=== PATIENT | female | born 1980 | race American Indian/Alaskan Native ===

== ENCOUNTER 2020-10-26 15:26 | Emergency (ER) | payer MEDICAID ==
--- NOTE | 2020-10-26 16:33 | Emergency Department Report ---
Blank Doc - Documentation Documentation: 40-year-old female that presents with chest pain, shortness of breath with rad iation to left arm. History of several MIs. 1- This initial assessment/diagnostic orders/clinical plan/ treatment(s) is/are subject to change based on pt's health status, clinical progression and re- assessment by fellow clinical providers in the ED. Further treatment and workup at subsequent clinical provers discretion. Patient/guardians urged not to elope from ED as their condition may be serious if not clinically assessed and managed. 2-cardiac work-up
[2020-10-26 16:48] LABS: Basophils # (Auto) 0.1 K/mm3 (0.0-0.1); Basophils % (Auto) 1.1 % (0.0-1.8); Eosinophils # (Auto) 0.3 K/mm3 (0.0-0.4); Eosinophils % (Auto) 5.2 % (0.0-4.3); Hematocrit 40.4 % (30.3-42.9); Hemoglobin 13.1 gm/dl (10.1-14.3); Lymphocytes # (Auto) 2.2 K/mm3 (1.2-5.4); Lymphocytes % (Auto) 39.4 % (13.4-35.0); Mean Corpuscular HGB Conc 32 % (30-34); Mean Corpuscular Volume 83 fl (79-97); Monocytes # (Auto) 0.5 K/mm3 (0.0-0.8); Monocytes % (Auto) 8.6 % (0.0-7.3); Platelet Count 199 K/mm3 (140-440); Red Blood Count 4.88 M/mm3 (3.65-5.03); Red Cell Distribution Width 15.8 % (13.2-15.2)
[2020-10-26 17:02] LABS: Partial Thromboplastin Time 29.4 Sec. (24.2-36.6)
[2020-10-26 17:11] LABS: Alanine Aminotransferase 21 units/L (7-56); BUN/Creatinine Ratio 8; Blood Urea Nitrogen 6 mg/dL (7-17); Calcium 9.4 mg/dL (8.4-10.2); Hemolysis Index 4
--- NOTE | 2020-10-26 17:59 | XRay Report ---
CHEST 2 VIEWS INDICATION / CLINICAL INFORMATION: Chest Pain. COMPARISON: None available. FINDINGS: SUPPORT DEVICES: Right Port-A-Cath tip overlies SVC. HEART / MEDIASTINUM: No significant abnormality. LUNGS / PLEURA: No significant pulmonary or pleural abnormality. No pneumothorax. ADDITIONAL FINDINGS: No significant additional findings. IMPRESSION: 1. No acute findings. Signer Name: Rigo Alegria MD Signed: 10/26/2020 5:55 PM Workstation Name: [id number] [id number]
--- NOTE | 2020-10-26 23:59 | Emergency Department Report ---
<OLEKSANDR ANTHONY - Last Filed: 10/27/20 02:26> ED Chest Pain HPI - General Chief Complaint: Chest Pain Stated Complaint: CHEST PAINS Time Seen by Provider: 10/26/20 16:02 - Related Data Allergies Allergy/AdvReac Type Severity Reaction Status Date / Time No Known Allergies Allergy Unverified 10/26/20 15:30 ED Medical Decision Making - Lab Data Result diagrams: 10/26/20 16:15 10/26/20 16:15 - Medical Decision Making CTA chest is negative for pulmonary embolism. Patient denied any chest pain at this moment. Vital signs stable. Patient advised to follow-up with the plan that has been discussed by Dr. Harvey. Patient advised to return to the ER if she develop any new symptoms. ED Disposition Clinical Impression: Chest pain, Elevated serum hCG Disposition: TO HOME OR SELFCARE Condition: Stable Instructions: Nonspecific Chest Pain, Adult Additional Instructions: Continue current medication as prescribed. Follow-up with your doctor or d octor/clinic provided. Return if symptoms worsen as indicated by your discharge instructions. Please note that your beta hCG level today is 4.44. A negative test is considered less than 4 and a positive test is considered greater than 5. It is likely that this represents a false positive test. In order to confirm your test she will need to have these numbers repeated to determine if they are increasing, decreasing, or staying the same Referrals: JACKIE WHEELER MD [Staff Physician] - 3-5 Days (AGENCY MANAGER doctor) PRIMARY MD VAN [Primary Care Provider] - 3-5 Days ANTHONY WHITE MD [Staff Physician] - 2-3 Days (Chief Medical Director) <ISAÍAS HARVEY - Last Filed: 10/29/20 12:15> ED Chest Pain HPI - General Source: patient, EMS, old records reviewed (None available) Mode of arrival: Wheelchair Limitations: No Limitations - History of Present Illness Initial Comments: 40-year-old female the past medical history of morbid obesity, CAD with stent x1 in 2012, continued smoking/tobacco use, family history of CAD, hypertension, pulmonary embolus in 2016, DVT, and bipolar disorder presents to the hospital from [place] complaining of chest pain episode. Episode happened prior to arrival just before noon. Patient was sitting at a table when she experienced sudden onset of tightness across her chest lasting for several seconds and associated with shortness of breath and feeling hot. She denies nausea, vomiting, or diaphoresis. She states that her blood pressure increased and her pulse ox dropped however, this was not confirmed by review was paperwork or sitter at the bedside. Patient has not experienced any additional chest pain episodes today. Patient states she is supposed to be on Coumadin 6 mg Sunday, Sunday, Sunday, and 3 mg Sunday, , and Sunday. She has been noncompliant with her Coumadin x1 month. Patient has multiple medical reconciliation list on her chart provided from [facility] and is also noted that she has been placed on aspirin and pasugrel as well. Patient claims to be on all 3 of these antiplatelet/anticoagulant medication at the same time but they are not all listed on same MAR. She has not been cathed since 2012 but reports a stress test in May 2020 with unknown results. Her tow driver is Dr. White associated with [facility]. Patient states she does not silverman ve a green filter. She does have a chest wall PowerPort. To her knowledge patient denies however, she has a positive test here. Patient appears to have been initially medically cleared at [facility] on October 24 Heart Score - HEART Score History: Moderately suspicious EKG: Normal Age: < 45 Risk factors: > 3 risk factors or hx of atherosclerotic disease Troponin: < normal limit HEART Score: 3 ED Review of Systems ROS: Stated complaint: CHEST PAINS Other details as noted in HPI Comment: All other systems reviewed and negative ED Past Medical Hx - Past Medical History Previous Medical History?: Yes Hx Hypertension: Yes Hx Heart Attack/AMI: Yes (x 2) Hx Deep Vein Thrombosis: Yes Hx Pulmonary Embolism: Yes Hx Psychiatric Treatment: Yes (bipolar) - Surgical History Past Surgical History?: Yes Hx Coronary Stent: Yes Additional Surgical History: hysterectomy - Social History Smoking Status: Current Every Day Smoker Substance Use Type: None ED Physical Exam - General Limitations: No Limitations - Other Other exam information: General: No acute distress Head: Atraumatic Eyes: normal appearance ENT: Moist mucous membranes Neck: Normal appearance, no midline tenderness Chest: Clear to auscultation bilaterally, chest wall nontender CV: Regular rate and rhythm Abdomen: Soft, normal bowel sounds, nontender, nondistended, no rebound or guarding Back: Normal inspection Extremity: Normal inspection, full range of motion, no calf tenderness or leg edema Neuro: Alert O x 3, no facial asymmetry, speech clear, no gross motor sensory deficit Psych: Appropriate behavior Skin: No rash ED Course Vital Signs 10/26/20 10/27/20 10/27/20 15:30 00:00 01:00 Temperature 98.6 F Pulse Rate 85 71 65 Respiratory 18 15 18 Rate Blood Pressure 124/79 130/88 130/88 O2 Sat by Pulse 100 100 98 Oximetry 10/27/20 02:00 Temperature Pulse Rate 63 Respiratory 16 Rate Blood Pressure 130/88 O2 Sat by Pulse 100 Oximetry - Consultations Consultation #1: 10/27/20 01:51 Case discussed with on-call tow driver Dr. Byrd who agrees that patient may l ikely follow-up as outpatient. She has been pain-free since ED arrival for 2- 1/2 hours, has EKG without signs of ischemia x2, troponin negative x2, and has a heart score of 3. DARIO score - Dario Score Age > 65: (0) No Aspirin use within the Past 7 Days: (1) Yes 3 or more CAD Risk Factors: (1) Yes 2 or more Angina events in past 24 hrs: (0) No Known CAD with more than 50% Stenosis: (1) Yes Elevated Cardiac Markers: (0) No ST Deviation Greater than 0.5mm: (0) No DARIO Score: 3 ED Medical Decision Making - Lab Data Result diagrams: 10/26/20 16:15 10/26/20 16:15 Lab Results 10/26/20 10/26/20 10/26/20 Range/Units 16:15 16:15 16:15 WBC 5.7 (4.5-11.0) K/mm3 RBC 4.88 (3.65-5.03) M/mm3 Hgb 13.1 (10.1-14.3) gm/dl Hct 40.4 (30.3-42.9) % MCV 83 (79-97) fl MCH 27 L (28-32) pg MCHC 32 (30-34) % RDW 15.8 H (13.2-15.2) % Plt Count 199 (140-440) K/mm3 Lymph % (Auto) 39.4 H (13.4-35.0) % Creek % (Auto) 8.6 H (0.0-7.3) % Eos % (Auto) 5.2 H (0.0-4.3) % Baso % (Auto) 1.1 (0.0-1.8) % Lymph # (Auto) 2.2 (1.2-5.4) K/mm3 Creek # (Auto) 0.5 (0.0-0.8) K/mm3 Eos # (Auto) 0.3 (0.0-0.4) K/mm3 Baso # (Auto) 0.1 (0.0-0.1) K/mm3 Seg Neutrophils % 45.7 (40.0-70.0) % Seg Neutrophils # 2.6 (1.8-7.7) K/mm3 PT (12.2-14.9) Sec. INR (0.87-1.13) APTT (24.2-36.6) Sec. Sodium 144 (137-145) mmol/L Potassium 3.8 (3.6-5.0) mmol/L Chloride 106.5 (98-107) mmol/L Carbon Dioxide 29 (22-30) mmol/L Anion Gap 12 mmol/L BUN 6 L (7-17) mg/dL Creatinine 0.8 (0.6-1.2) mg/dL Estimated GFR > 60 ml/min BUN/Creatinine Ratio 8 % Glucose 96 (65-100) mg/dL Calcium 9.4 (8.4-10.2) mg/dL Magnesium (1.7-2.3) mg/dL Total Bilirubin 0.40 (0.1-1.2) mg/dL AST 24 (5-40) units/L ALT 21 (7-56) units/L Alkaline Phosphatase 77 (35-129) units/L Troponin T < 0.010 (0.00-0.029) ng/mL NT-Pro-B Natriuret Pep (0-450) pg/mL Total Protein 6.9 (6.3-8.2) g/dL Albumin 4.0 (3.9-5) g/dL Albumin/Globulin Ratio 1.4 % HCG, Qual Positive (Negative) HCG, Quant (0-4) mIU/mL 03/09/21 03/09/21 03/09/21 Range/Units 16:15 16:15 19:04 WBC (4.5-11.0) K/mm3 RBC (3.65-5.03) M/mm3 Hgb (10.1-14.3) gm/dl Hct (30.3-42.9) % MCV (79-97) fl MCH (28-32) pg MCHC (30-34) % RDW (13.2-15.2) % Plt Count (140-440) K/mm3 Lymph % (Auto) (13.4-35.0) % Creek % (Auto) (0.0-7.3) % Eos % (Auto) (0.0-4.3) % Baso % (Auto) (0.0-1.8) % Lymph # (Auto) (1.2-5.4) K/mm3 Creek # (Auto) (0.0-0.8) K/mm3 Eos # (Auto) (0.0-0.4) K/mm3 Baso # (Auto) (0.0-0.1) K/mm3 Seg Neutrophils % (40.0-70.0) % Seg Neutrophils # (1.8-7.7) K/mm3 PT 13.0 (12.2-14.9) Sec. INR 1.00 (0.87-1.13) APTT 29.4 (24.2-36.6) Sec. Sodium (137-145) mmol/L Potassium (3.6-5.0) mmol/L Chloride (98-107) mmol/L Carbon Dioxide (22-30) mmol/L Anion Gap mmol/L BUN (7-17) mg/dL Creatinine (0.6-1.2) mg/dL Estimated GFR ml/min BUN/Creatinine Ratio % Glucose (65-100) mg/dL Calcium (8.4-10.2) mg/dL Magnesium 1.80 (1.7-2.3) mg/dL Total Bilirubin (0.1-1.2) mg/dL AST (5-40) units/L ALT (7-56) units/L Alkaline Phosphatase (35-129) units/L Troponin T < 0.010 (0.00-0.029) ng/mL NT-Pro-B Natriuret Pep 62.95 (0-450) pg/mL Total Protein (6.3-8.2) g/dL Albumin (3.9-5) g/dL Albumin/Globulin Ratio % HCG, Qual (Negative) HCG, Quant (0-4) mIU/mL 10/26/20 10/27/20 Range/Units 23:48 Unknown WBC (4.5-11.0) K/mm3 RBC (3.65-5.03) M/mm3 Hgb (10.1-14.3) gm/dl Hct (30.3-42.9) % MCV (79-97) fl MCH (28-32) pg MCHC (30-34) % RDW (13.2-15.2) % Plt Count (140-440) K/mm3 Lymph % (Auto) (13.4-35.0) % Creek % (Auto) (0.0-7.3) % Eos % (Auto) (0.0-4.3) % Baso % (Auto) (0.0-1.8) % Lymph # (Auto) (1.2-5.4) K/mm3 Creek # (Auto) (0.0-0.8) K/mm3 Eos # (Auto) (0.0-0.4) K/mm3 Baso # (Auto) (0.0-0.1) K/mm3 Seg Neutrophils % (40.0-70.0) % Seg Neutrophils # (1.8-7.7) K/mm3 PT (12.2-14.9) Sec. INR (0.87-1.13) APTT (24.2-36.6) Sec. Sodium (137-145) mmol/L Potassium (3.6-5.0) mmol/L Chloride (98-107) mmol/L Carbon Dioxide (22-30) mmol/L Anion Gap mmol/L BUN (7-17) mg/dL Creatinine (0.6-1.2) mg/dL Estimated GFR ml/min BUN/Creatinine Ratio % Glucose (65-100) mg/dL Calcium (8.4-10.2) mg/dL Magnesium (1.7-2.3) mg/dL Total Bilirubin (0.1-1.2) mg/dL AST (5-40) units/L ALT (7-56) units/L Alkaline Phosphatase (35-129) units/L Troponin T < 0.010 (0.00-0.029) ng/mL NT-Pro-B Natriuret Pep (0-450) pg/mL Total Protein (6.3-8.2) g/dL Albumin (3.9-5) g/dL Albumin/Globulin Ratio % HCG, Qual (Negative) HCG, Quant 4.44 H (0-4) mIU/mL - EKG Data -: EKG Interpreted by Me EKG shows normal: sinus rhythm, ST-T waves (no stemi) Rate: normal - EKG Data When compared to previous EKG there are: previous EKG unavailable 10/27/20 00:56 Repeat EKG performed 12:44 AM without acute changes - Radiology Data Radiology results: report reviewed (cxr: naf) - Medical Decision Making 40-year-old female presents to the hospital with chest pain that happened prior to arrival but has been chest pain-free for her greater than 10-hour ED stay. Patient had EKGs without ischemic findings x2, troponin negative x2, and unremarkable chest x-ray and normal vital signs. Case was discussed with [facility] Byrd who advises outpatient cardiac follow- up Patient signed out to Dr. Spencer to follow-up on CT angiogram chest to rule out pulmonary embolism. Patient does not have hypoxia, tachycardia, clinical signs of DVT. If CT angiogram is negative patient may be discharged home with outpatient follow-up with cardiology. If CT angiogram is positive for pulmonary embolism patient would need admission to the hospital If patient is discharged she will be returned to [facility] to continue her psychiatric treatment for suicidal ideation and bipolar disorder. Patient also advised that her hCG quant is 4.4 which is slightly over the positive threshold. Patient will need follow-up for repeat testing to determine if this number is indeed increasing, decreasing, or staying the same Critical Care Time: No Critical care attestation.: If time is entered above; I have spent that time in minutes in the direct care of this critically ill patient, excluding procedure time. ED Disposition Is pt being admited?: No Does the pt Need Aspirin: No
[2020-10-27 01:38] VITALS: BP 130/88
--- NOTE | 2020-10-27 02:08 | Cat Scan Report ---
CTA CHEST HISTORY: Chest Pain. COMPARISON: None TECHNIQUE: Routine chest CT angiogram performed utilizing intravenous contrast. MIP/3D reformats wer e post-processed. CONTRAST: 100 ml of Omnipaque 350 FINDINGS: Heart and Pericardium: Coronary artery calcification. Pulmonary Arteries: Diagnostic pulmonary artery opacification. No significant respiratory motion. No pulmonary emboli seen. Thoracic Aorta: Normal in caliber. No dissection flap Lymphatics: No lymphadenopathy by size criteria. Lungs: No significant infiltrate or pleural fluid. Diffuse scattered noncalcified nodules. The larges t is at the right middle lobe measuring 6 mm. Trachea and Bronchi: No significant abnormality. Osseous Structures: No significant abnormality. Additional Findings: None IMPRESSION: 1. Overall diagnostic examination. Negative for pulmonary embolism. 2. Negative for thoracic aortic dissection or thoracic aortic aneurysm. 3. No lung infiltrate. 4. Incidental pulmonary nodules with the largest measuring 6 mm. INCIDENTAL PULMONARY NODULE RECOMMENDATION RECOMMENDATION: Solid Nodule size 6-8 mm -- Multiple - Low Risk Patient: CT at 3-6 months, then consider CT at 18-24 months - High Risk Patient: CT at 3-6 months, then CT at 18-24 month Note These recommendations do not apply to lung cancer screening, patients with immunosuppression, o r patients with known primary cancer. Note Newly detected indeterminate nodule in persons 35 years of age or older. Persons under the age of 35 should not receive follow-up unless there is a known primary cancer. Note Perifissural Nodule is a fissure-attached/subpleural, homogeneous, solid nodule that has smooth margins and an oval, lentiform, or triangular shape. They represent about 20% of nodules detected in lung cancer screening, are invariably benign, and do not require follow-up. Nodules 10 mm or larger (or those with suspicious features) will continue to be managed based on the size criteria. Low Risk Patient -- minimal or absent history of smoking and of other known risk factors. High Risk Patient -- history of smoking or of other known risk factors. Nodule dimensions are average of long and short axes, rounded to the nearest millimeter. Based on 2017 Fleischner Society Guidelines found in Radiology 2017 284:228-243. https://doi.org/10.1148/radiol.[email or web address] https://www.ncbi.nlm.nih.gov/pmc/articles/ZIA5121741/ Signer Name: Jomar Xie MD Signed: 10/27/2020 2:03 AM Workstation Name: [id number]
== END 2020-10-27 06:02 | disposition home or self-care (01) ==
LOC: ED 15:26
DX: O26.891 Other specified pregnancy related conditions, first trimester (principal); R07.89 Other chest pain; O02.81 Inappropriate change in quantitative human chorionic gonadotropin (hCG) in early pregnancy; I10 Essential (primary) hypertension; I25.2 Old myocardial infarction; F17.200 Nicotine dependence, unspecified, uncomplicated; F32.9 Major depressive disorder, single episode, unspecified; Z79.899 Other long term (current) drug therapy; Z3A.01 Less than 8 weeks gestation of pregnancy
CPT/HCPCS: 36415; 71046; 71275; 80053; 83735; 83880; 84484; 84702; 84703; 85025; 85610; 85730; 93005; 99285; Q9967

== ENCOUNTER 2020-10-31 05:28 | Emergency (ER) | payer MEDICAID ==
--- NOTE | 2020-10-31 11:02 | Emergency Department Report ---
ED HPI - General Chief complaint: Medical Clearance Stated complaint: 26 WEEKS PREG;LEAKING FLUID Time Seen by Provider: 10/31/20 10:57 Source: patient Mode of arrival: Ambulatory Limitations: No Limitations - History of Present Illness Initial comments: 40-year-old female the past medical history of DVT, CAD with stent, hypertension, bipolar disorder, pulmonary embolism, and previous hysterectomy presents to the hospital complaints of being "8 months with triplets and having contractions all day". Patient was seen by me on October 26. At that time she was inpatient at [facility] and presented with chest pain. Her hCG quant at that time was 4.44 which is thought to be a false positive given history of a hysterectomy and low value. Patient denies current abdominal pain, dysuria, vaginal bleeding, or fever. Patient was just discharged from [facility] yesterday and has not yet filled her medication. She plans to fill her medications tomorrow. It is noted on chart that patient was found trespassing on the premises. Patient denies being homeless and states she has a place to live - Related Data Allergies Allergy/AdvReac Type Severity Reaction Status Date / Time No Known Allergies Allergy Unverified 10/26/20 15:30 ED Review of Systems ROS: Stated complaint: 26 WEEKS PREG;LEAKING FLUID Other details as noted in HPI Comment: All other systems reviewed and negative ED Past Medical Hx - Past Medical History Previous Medical History?: Yes Hx Hypertension: Yes Hx Heart Attack/AMI: Yes (x 2) Hx Deep Vein Thrombosis: Yes Hx Pulmonary Embolism: Yes Hx Psychiatric Treatment: Yes (bipolar) - Surgical History Past Surgical History?: Yes Hx Coronary Stent: Yes Additional Surgical History: hysterectomy - Social History Smoking Status: Current Every Day Smoker Substance Use Type: None ED Physical Exam - General Limitations: No Limitations - Other Other exam information: General: No acute distress Head: Atraumatic Eyes: normal appearance ENT: Moist mucous membranes Neck: Normal appearance, no midline tenderness Chest: Clear to auscultation bilaterally CV: Regular rate and rhythm Abdomen: Soft, normal bowel sounds, nontender, nondistended, no rebound or guarding Back: Normal inspection Extremity: Normal inspection, full range of motion Neuro: Alert O x 3, no facial asymmetry, speech clear, no gross motor sensory deficit Psych: Appropriate behavior Skin: No rash ED Course Vital Signs 10/31/20 06:31 Temperature 98.6 F Pulse Rate 79 Respiratory 18 Rate Blood Pressure 132/91 O2 Sat by Pulse 100 Oximetry ED Medical Decision Making - Medical Decision Making 40-year-old female presents to the hospital claiming to be 8 months however, she has had a hysterectomy. Patient had a hCG quant on October 26 that was 4.44 and today it is 4.57. These are believed to be false positives given patient's lack of a uterus (reported hysterectomy) and low hCG level. Outpatient follow-up will be encouraged Critical Care Time: No Critical care attestation.: If time is entered above; I have spent that time in minutes in the direct care of this critically ill patient, excluding procedure time. ED Disposition Clinical Impression: Elevated serum hCG, Bipolar disorder, History of hysterectomy Disposition: TO HOME OR SELFCARE Is pt being admited?: No Condition: Stable Instructions: Managing Bipolar Disorder Additional Instructions: Follow-up with your doctor or doctor/clinic provided. Return if symptoms worsen as indicated by your discharge instructions. Referrals: Rosalio TORRES MD [Primary Care Provider] - 3-5 Days JACKIE WHEELER MD [Staff Physician] - 3-5 Days (SURGICAL SUPPLIES STERILIZER) Time of Disposition: 11:05
[2020-10-31 11:10] VITALS: BP 140/79
== END 2020-10-31 11:15 | disposition home or self-care (01) ==
LOC: ED 05:28
DX: R89.1 Abnormal level of hormones in specimens from other organs, systems and tissues (principal); F31.9 Bipolar disorder, unspecified; Z90.710 Acquired absence of both cervix and uterus; I10 Essential (primary) hypertension; I25.2 Old myocardial infarction; F17.200 Nicotine dependence, unspecified, uncomplicated; Z86.718 Personal history of other venous thrombosis and embolism; Z86.711 Personal history of pulmonary embolism
CPT/HCPCS: 36415; 84702